=== PATIENT | male | born 2005 | race Caucasian/White ===

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

== ENCOUNTER 2024-11-12 09:40 | Outpatient (REF) | payer MEDICAID, SELFPAY ==
--- OUTSIDE RECORDS SUMMARY | 2024-11-12 10:27 | XMS_ITS | Encounter Summary ---
Author Organization [employer] Address [address] [place] [address] Care Team Providers Care Project Construction Assistant Manager Name Role Phone Mellissa Wolfe MD Primary Care Provide r Reason for Visit * Reason Onset Date Comments Chart Prep 11/02/2024 Encounter Details Date Type Department Care Team ([facility] st Contact Info) Description 11/02/2024 Telephone [facility] [address] [place] [address] Nazia Byrnes MA Chart Prep Social History Tobacco Use Types Packs/Day Years Used Date Smoking Tobacco: Never Smokeless Tobacco: Never Housing Stability Answer Date Recorded What is your housing situation today? I have nay mcmullen 08/15/[address] you li ve. Do you have problems with any of the following? None of the above 08/15/2023 Food Insecurity Answer Date Recorded Within the past 12 months, y ou worried that your food would run out before you got money to buy more: Never True 08/15/2023 Within the past 12 months,th e food you bought just didn't last and you didn't have enough money to get more: Never True 07/2023 Transportation Answer Date Recorded In the past 12 months, has l ack of transportation kept you from medical appts, meetings, work or from getting things needed for daily living? No 08/15/2023 Utilities Answer Date Recorded In the past 12 months, has t he electric, gas, oil or water company threatened to shut off services in your home? No 08/15/2023 Sex and Gender Information Value Date Recorded Sex Assigned at Male 08/05/2022 10:27 AM EDT Legal Sex Male 10:27 AM EDT Gender Identity Male 08/05/2022 10:27 AM EDT Sexual Orientation Don't know 08/05/2022 10 :27 AM EDT documented as of this encounter Miscellaneous Notes * Telephone Encounter - Nazia Byrnes MA - 11/02/2024 9:32 AM EST Chart Prep Labs: not applicable Images: not applicable Vaccines due: Covid Due, PCV20 Due, and Flu Due Referrals: Not Applicable Screenings: HIV screening and STI, Hep C Overdue care gaps: Sbirt, SDOH, PHQ-9, Oral Health, and Fluoride documented in this encounter Plan of Treatment Upcoming Encounters Date Type Department Care Team (Late st Contact Info) Description 01/31/2025 10:15 AM EDT Office Visit [facility] [address] [place] [address] Jana Tierney NP [address] [place] [address] documented as of this encounter Visit Diagnoses Not on filedocumented in this encounter Care Teams Project Construction Assistant Manager Relationship Specialty Start Date End Date Mellissa Wolfe MD [address] [place] [address] PCP - General Pediatrics 09/11/22 11/11/24 documented as of this encounter
--- OUTSIDE RECORDS SUMMARY | 2024-11-12 10:27 | XMS_ITS | Encounter Summary ---
Author Organization [employer] Address [address] [place] [address] Care Team Providers Care Laundry Superintendent Name Role Phone Mellissa Wolfe MD Primary Care Provide r Reason for Visit * Reason Comments Pre-visit Planning SDOH negative, Tobac co screening negative. Encounter Details Date Type Department Care Team ([facility] st Contact Info) Description 11/05/2024 Patient Outreach [facility] [address] [place] [address] Mellissa Wolfe MD [address] [place] [address] Pre-visit Planning (SDOH negative, Tobacco screening negative./) Social History Tobacco Use Types Packs/Day Years Used Date Smoking Tobacco: Never Smokeless Tobacco: Never Housing Stability Answer Date Recorded What is your housing situation today? I have nay mcmullen 11/05/[address] you li ve. Do you have problems with any of the following? None of the above 11/05/2024 Food Insecurity Answer Date Recorded Within the past 12 months, y ou worried that your food would run out before you got money to buy more: Never True 11/05/2024 Within the past 12 months,th e food you bought just didn't last and you didn't have enough money to get more: Never True Transportation Answer Date Recorded In the past 12 months, has l ack of transportation kept you from medical appts, meetings, work or from getting things needed for daily living? No 11/05/2024 Utilities Answer Date Recorded In the past 12 months, has t he electric, gas, oil or water company threatened to shut off services in your home? No 11/05/2024 Internet Access Answer Date Recorded Internet Access Q1 Yes 11/05/2024 Internet Access Q2 Not on file 11/05/2024 Sex and Gender Information Value Date Recorded Sex Assigned at Male 08/05/2022 10:27 AM EDT Legal Sex Male 10:27 AM EDT Gender Identity Male 08/05/2022 10:27 AM EDT Sexual Orientation Don't know 08/05/2022 10 :27 AM EDT documented as of this encounter Progress Notes * Priti Kruger - 11/05/2024 10:04 AM EST CC Priti Valera placed successful outbound call to patient for pre-visit planning. Patient name and confirmed. Patient confirms appt date and time, and has transportation arrangements. Biggest concern for appointment at this time is would like to do some blood work. Appropriate screenings completed in anticipation of appointment. documented in this encounter Plan of Treatment Upcoming Encounters Date Type Department Care Team (Late st Contact Info) Description 01/31/2025 10:15 AM EDT Office Visit [facility] [address] [place] [address] Jana Tierney NP [address] [place] [address] documented as of this encounter Visit Diagnoses Not on filedocumented in this encounter Care Teams Laundry Superintendent Relationship Specialty Start Date End Date Mellissa Wolfe MD [address] [place] [address] PCP - General Pediatrics 09/11/22 11/11/24 documented as of this encounter
--- OUTSIDE RECORDS SUMMARY | 2024-11-12 10:27 | XMS_ITS | Clinical Summary ---
Author Organization [employer] Address [address] [facility] [address] [place] [address] Care Team Providers Care Development Planner Name Role Phone Jana Tierney NP Primary Care Provider [phone] Allergies No known active allergies Medications albuterol 108 (90 Base) MCG/ACT inhaler 2 puff by inhalation route every 4 to 6 hours prn shortness of breath or wheezing 2 Active ibuprofen 600 MG tabletIndicatio ns:Influenza A 1 tab q 6 hours prn fever or pain 30 tablet 1 4 Active ketoconazole (NIZOral) 2 % shampoo Apply topically 2 (two) times a week. leave on for 5-10 minutes, then rinse. 120 mL 4 Active famotidine (Pepcid) 10 MG tabletIndicatio ns:Gastroesopha geal reflux disease without esophagitis Take 1 tablet (10 mg) by mouth 2 times daily. 60 tablet 5 4 11/12/19 25 Discontin ued(Thera py completed ) Active Problems Problem Noted Date Diagnosed Date Healthcare maintenance 11/12/2024 Assessment & Plan (11/12/2024 9:36 AM EST): Thriving, no acute complaints or concerns, Established with dental Sti screening ordered Anticipatory guidance reviewed Abnormal vision 05/02/2023 Hearing loss of left ear 05/02/2023 Mild intermittent asthma 05/02/2023 Assessment & Plan (11/12/2024 9:36 AM EST): Prn inhaler, uses less than monthly Encounters Date Type Department Care Team Description 11/12/2024 9:00 AM EST Office Visit [facility] [address] [place] [address] Jana Tierney NP Healthcare maintenance (Primary Dx); Mild intermittent asthma without complication 11/05/2024 Patient Outreach [facility] [address] [place] [address] Mellissa Wolfe MD Pre-visit Planning (SDOH negative, Tobacco screening negative./) 11/02/2024 Telephone [facility] [address] [place] [address] Nazia Byrnes MA Chart Prep from Last 3 Months Immunizations Name Administration Dates Next Due DTaP 12/13/2008, 6,06/24/2005,04/15 DTaP, 5 pertussis antigens 02/12/2005 HPV, Quadrivalent 12/31/2016,12/18/2015 Hep A, ped/adol, 2 dose 12/18/2015,07/11/2014 Hep B, Adolescent or Pediatric 06/24/2005,2004,2004 HiB, unspecified 03/06/2006,04/15/2005 Hib (PRP-T) 02/12/2005 IPV 12/13/2008, 5,04/15/2005,02/12 Influenza, seasonal, injecta ble, preservative free 07/21/2014,06/22/2013 MMR 12/13/2008,2005 Meningococcal MCV4O 12/18/2015 Meningococcal MCV4P ACYW-135 07/26/2021 Pneumococcal Conjugate PCV 13 03/06/2006 ,06/24/2005,04/15/2005,02/12 Tdap 12/18/2015 Varicella 03/29/2009,2005 Social History Tobacco Use Types Packs/Day Years Used Date Smoking Tobacco: Never Smokeless Tobacco: Never Tobacco Cessation:Counseling Given: Not Answered Depression Answer Date Recorded Patient Health Questionnaire-9 Score 8 11/12/2024 Patient Health Questionnaire-9 Score 8 11/12/2024 Last PHQ-9: Questionnaire Data Not on file 0 11/12/2024 Housing Stability Answer Date Recorded What is [...] off services in your home? No 11/05/2024 Depression Answer Date Recorded Patient Health Questionnaire-2 Score 3 11/12/2024 Internet Access Answer Date Recorded Internet Access Q1 Yes 11/05/2024 Internet Access Q2 Not on file 11/05/2024 Sex and Gender Information Value Date Recorded Sex Assigned at Male 08/05/2022 10:27 AM EDT Legal Sex Male 10:27 AM EDT Gender Identity Male 08/05/2022 10:27 AM EDT Sexual Orientation Don't know 08/05/2022 10 :27 AM EDT Last Filed Vital Signs Vital Sign Reading Time Taken Comments Blood Pressure 136/66 11/12/2024 9:01 AM EST Pulse 78 11/12/2024 9:01 AM EST Temperature 36.1 ??C (97 ??F) 11/12/2024 9:01 AM EST Respiratory Rate 18 11/12/2024 9:01 AM EST Oxygen Saturation 99% 11/12/2024 9:01 AM EST Inhaled Oxygen Concentration - - Weight 69.9 kg (154 lb) 11/12/2024 9:01 AM EST Height 170.2 cm (5' 7 ) 11/12/2024 9:01 AM EST Body Mass Index 24.12 11/12/2024 9:01 AM EST Plan of Treatment Upcoming Encounters Date Type Department Care Team (Late st Contact Info) Description 01/31/2025 10:15 AM EDT Office Visit [facility] [address] [place] [address] Jana Tierney NP [address] [place] [address] Health Maintenance Due Date Last Done Comments Chlamydia and Gonorrhea Screening 2004 HIV Screening 2004 Pneumococcal Vaccine: Pediatrics (0 to 5 Years) and At-Risk Patients (6 to 49) Years) (1 of 1 - PPSV23) 2010 03/06/2006, 06/24/2005, 04/15/2005, Additional history exists Fluoride Varnish 04/12/2015 10/13/2014 Family Planning (PISQ) 12/05/2019 Hepatitis C Screening 2022 COVID-19 Vaccine ( season) 2024 Influenza Vaccine (#1) 2024 07/21/2014, 2012 SDOH Screening 11/05/2025 11/05/2024 Alcohol/Substance Use Screening 11/12/2025 11/12/2024 Depression Screening 11/12/2025 11/12/2024, 11/12/19 Tobacco Screening 11/12/2025 11/12/2024 DTaP/Tdap/Td Vaccines (7 - Td or Tdap) 12/17/2025 12/18/2015, 12/13/2008, 03/06/2006, Additional history exists Zoster Vaccines (1 of 2) 2054 RSV Patients and Patients Aged 60 years or older (1 - 1-dose 75+ series) 12/05/2079 Hepatitis B Vaccines Completed 06/24/2005, 02/12/2005, 2004 HIB Vaccines Completed 03/06/2006, 04/05, 02/12/2005 IPV Vaccines Completed 12/13/2008, 06/06, 04/15/2005, Additional history exists MMR Vaccines Completed 12/13/2008, 2005 Varicella Vaccines Completed 03/29/2009, 2005 Hepatitis A Vaccines Completed 12/18/2015, 10/06/20 14 HPV Vaccines Completed 12/31/2016, 12/18/2015 Meningococcal Vaccine Completed 07/26/2021, 016 RSV under 20 months Aged Out No longe r eligible based on patient's age to complete this topic Rotavirus Vaccines Aged Out No longer eligible based on patient's age to complete this topic Procedures Procedure Name Priority Date/Time Associated Diagnosis Comments TOPICAL APPLICATION OF FLUORIDE VARNISH Routine 10/13/2014 12:00 AM EST from Last 3 Months or Most Recently Relevant to Health Maintenance Insurance Between C3 Care Teams Development Planner Relationship Specialty Start Date End Date Jana Tierney NP [address] [place] [phone] PCP - General Family Medicine 11/12/24
--- OUTSIDE RECORDS SUMMARY | 2024-11-12 10:27 | XMS_ITS | Encounter Summary ---
Author Organization [employer] Address [address] [facility] 7 [place] [address] Care Team Providers Care Billing Auditor Name Role Phone Jnaa Tierney NP Primary Care Provider [phone] Reason for Referral * Consultation (Routine) - Authorized Specialty Diagnoses / Procedures Referred By Conthector t Referred To Contact Optometry Diagnoses Healthcare maintenance Jana Tierney NP [address] [place] [address] Phone: tel: fax: [facility] [address] [place] [phone] Phone: tel: fax: Referral ID Status Reason Start Date Expiration Date Visits Requested Visits Authorized [id number] Authorized Consult and Treat 11/12/2024 11/12/2025 1 1 Encounter Details Date Type Department Care Team (Late st Contact Info) Description 11/12/2024 9:00 AM EST Office Visit [facility] [address] [place] [address] Jana Tierney NP [address] [place] [address] Healthcare maintenance (Primary Dx); Mild intermittent asthma without complication Social History Tobacco Use Types Packs/Day Years Used Date Smoking Tobacco: Never Smokeless Tobacco: Never Depression Answer Date Recorded Patient Health Questionnaire-9 [...] AM EDT documented as of this encounter Last Filed Vital Signs Vital Sign Reading [...] Mass Index 24.12 11/12/2024 9:01 AM EST documented in this encounter Progress Notes * Jana Tierney, SALT GRINDER - 11/12/2024 9:00 AM EST Subjective: Christiano Norton is a 18 y.o. male who presents to the office for a transfer patient visit. Interim history: Rarely needs inhaler Current concerns: Sti screening, not yet sexually active but would like testing completed Phq- no concerns, sometimes has insomnia not impacting qol Declines flu and covid vaccines Patient Active Problem List Diagnosis Abnormal vision Hearing loss of left ear Mild intermittent asthma Healthcare maintenance No past surgical history on file. No family history on file. 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 No marijuana -opioids none Sexual activity: none, attracted to women Mental health: Patient Health Questionnaire-9 Score: 8 (11/12/2024 9:07 AM) Patient Health Questionnaire-2 Score: 3 (11/12/2024 9:07 AM) Thoughts that you would be better off or hurting yourself in some way: Not at all (11/12/2024 9:07 AM) No data recorded Trouble sleeping but no concerns No LMP for male patient. No Known Allergies Review of Systems Constitutional: Negative for activity change and appetite change. HENT: Negative for congestion and dental problem. Respiratory: Negative for apnea and chest tightness. Cardiovascular: Negative for chest pain and leg swelling. Genitourinary: Negative for difficulty urinating. Neurological: Negative for dizziness. Vitals: 11/12/24 0901 BP: 136/66 BP Location: Right arm Patient Position: Sitting BP Cuff Size: Adult Pulse: 78 Resp: 18 Temp: 97 ??F (36.1 ??C) TempSrc: Oral SpO2: 99% Weight: 154 lb (69.9 kg) Height: 5' 7 (1.702 m) Physical Exam Vitals reviewed. Constitutional: Appearance: Normal appearance. HENT: Head: Normocephalic. Cardiovascular: Rate and Rhythm: Normal rate. Heart sounds: Normal heart sounds. Pulmonary: Breath sounds: Normal breath sounds. Abdominal: Palpations: Abdomen is soft. Musculoskeletal: Cervical back: Neck supple. Lymphadenopathy: Cervical: No cervical adenopathy. Neurological: Mental Status: He is alert. Psychiatric: Mood and Affect: Mood normal. Problem List Items Addressed This Visit Mild intermittent asthma Current Assessment & Plan Prn inhaler, uses less than monthly Healthcare maintenance - Primary Current Assessment & Plan Thriving, no acute complaints or concerns, Established with dental Sti screening ordered Anticipatory guidance reviewed Relevant Orders Chlamydia/N. Gonorrhoeae RNA, TMA, Urogenitial Referral to [facility] HIV-1/2 Antigen and Antibodies, Fourth Generation, with Reflexes Hepatitis C Antibody with Reflex to HCV, RNA, Quantitative, Real-Time PCR RPR (Monitor) with Reflex to Titer Routine Screening and Health Maintenance Optometry: Yes Dentist: Yes Lab Review: no lab studies available for review at time of visit Current Outpatient Medications Medication Sig Dispense Refill albuterol 108 (90 Base) MCG/ACT inhaler 2 puff by inhalation route every 4 to 6 hours prn shortnessof breath or wheezing ibuprofen 600 MG tablet 1 tab q 6 hours prn fever or pain 30 tablet 1 ketoconazole (NIZOral) 2 % shampoo Apply topically 2 (two) times a week. leave on for 5-10 minutes,then rinse. 120 mL 0 No current facility-administered medications for this visit. Immunization History Administered Date(s) Administered DTaP 04/15/2005, 06/24/2005, 03/06/2006, 12/13/2008 DTaP, 5 pertussis antigens 02/12/2005 HPV, Quadrivalent 12/18/2015, 12/31/2016 Hep A, ped/adol, 2 dose 07/11/2014, 12/18/2015 Hep B, Adolescent or Pediatric 2004, 02/12/2005, 06/24/2005 HiB, unspecified 04/15/2005, 03/06/2006 Hib (PRP-T) 02/12/2005 IPV 02/12/2005, 04/15/2005, 06/24/2005, 12/13/2008 Influenza, seasonal, injectable, preservative free 06/22/2013, 07/21/2014 MMR 2005, 12/13/2008 Meningococcal MCV4O 12/18/2015 Meningococcal MCV4P ACYW-135 07/26/2021 Pneumococcal Conjugate PCV 13 02/12/2005, 04/15/2005, 06/24/2005, 03/06/2006 Tdap 12/18/2015 Varicella 2005, 03/29/2009 documented in this encounter Miscellaneous Notes * Assessment & Plan Note - Jana Tierney NP - 11/12/2024 9:36 AM ESTAssociated Problem(s): Healthcare maintenance Thriving, no acute complaints or concerns, Established with dental Sti screening ordered Anticipatory guidance reviewed * Assessment & Plan Note - Jana Tierney NP - 11/12/2024 9:36 AM ESTAssociated Problem(s): Mild intermittent asthma Prn inhaler, uses less than monthly documented in this encounter Plan of Treatment Upcoming Encounters Date Type Department Care Team (Late st Contact Info) Description 01/31/2025 10:15 AM EDT Office Visit [facility] [address] [place] [phone] Jana Tierney NP [address] [place] [address] Scheduled Orders Name Type Priority Associated Diagnoses Orde r Schedule Chlamydia/N. Gonorrhoeae RNA, TMA, Urogenitial Microbiology Routine Healthcare maintenance Ordered: 11/12/2024 HIV-1/2 Antigen and Antibodies, Fourth Generation, with Reflexes Lab Routine Healthcare maintenance Expected: 11/12/2024 (Approximate), Expires: 11/12/2025 Hepatitis C Antibody with Reflex to HCV, RNA, Quantitative, Real-Time PCR Lab Routine Healthcare maintenance Expected: 11/12/2024, Expires: 11/12/2025 RPR (Monitor) with Reflex to??Titer Lab Routine Healthcare maintenance Expected: 11/12/2024, Expires: 11/12/2025 Scheduled Referrals Name Type Priority Associated Diagnoses Orde r Schedule Referral to [facility] Outpatient Referral Routine Healthcare maintenance Expected: 11/12/2024 (Approximate), Expires: 11/12/2025 documented as of this encounter Visit Diagnoses Diagnosis Healthcare maintenance- Primary Mild intermittent asthma without complication documented in this encounter Additional Health Concerns Assessment Noted Time PHQ-9 Depression Total Score: 8 11/12/19 9:07 AM EST documented as of this encounter Care Teams Billing Auditor Relationship Specialty Start Date End Date Jana Tierney NP [address] [place] [address] PCP - General Family Medicine 11/12/24 documented as of this encounter
[2024-11-12 12:25] LABS: HIV AB/AG Nonreactive (Nonreactive); HIV Num 1 0.08 S/CO (0.00-0.99); ~HepC Num1 0.21 S/CO (0.00-0.79); ~Hepatitis C Antibody Nonreactive (Nonreactive)
[2024-11-13 12:27] LABS: CT PCR NOT DETECTED (Not Detect.); NG PCR NOT DETECTED (Not Detect.)
[2024-11-15 13:29] LABS: RPR Rapid Plasma Reagin NON-REACTIVE (NON-REACTIVE)
== END 2024-11-12 09:41 | disposition home or self-care (01) ==
LOC: HO.HHCL 09:40
PROVIDERS: Visit Provider Nurse Practitioner Family
DX: Z00.00 Encounter for general adult medical examination without abnormal findings (principal); Z11.3 Encounter for screening for infections with a predominantly sexual mode of transmission; Z11.59 Encounter for screening for other viral diseases
CPT/HCPCS: 36415; 86592; 86803; 87389; 87491; 87591